=== PATIENT | male | born 1985 | race Caucasian/White ===

== ENCOUNTER 2017-07-25 18:07 | Emergency (ER) | payer BC, OTHER ==
[2017-07-25 18:21] VITALS: BP 133/91
--- NOTE | 2017-07-25 18:28 | EDM.PDOC ---
ED HPI GENERAL MEDICAL PROBLEM - General Chief Complaint: Skin Complaint Stated Complaint: SPIDER BITE Time Seen by Provider: 07/25/17 18:28 Source of Information: Reports: Patient - History of Present Illness INITIAL COMMENTS - FREE TEXT/NARRATIVE: Patient is here for evaluation of a skin lesion to his left buttock. States he noticed it today. It has been very painful and getting larger throat today. Patient does not have frequent skin lesions has not had frequent infections. He is not diabetic. Denies any chronic medical conditions. He is on no medications daily. - Related Data Allergies Allergy/AdvReac Type Severity Reaction Status Date / Time No Known Allergies Allergy Verified 07/25/17 18:21 Home Meds: Home Meds Cephalexin [Keflex] 500 mg PO BID #20 capsule 07/25/17 [Rx] Past Medical History - Past Health History Medical/Surgical History: Denies Medical/Surgical History HEENT History: Reports: Otitis Media - Past Surgical History GI Surgical History: Reports: Appendectomy Social & Family History - Family History Family Medical History: Noncontributory - Tobacco Use Smoking Status *Q: Current Every Day Smoker Years of Tobacco use: 15 Packs/Tins Daily: 0.5 - Caffeine Use Caffeine Use: Reports: Energy Drinks - Recreational Drug Use Recreational Drug Use: No ED ROS GENERAL - Review of Systems Review Of Systems: See Below Constitutional: Denies: Fever, Chills, Weakness, Fatigue Respiratory: Reports: No Symptoms Cardiovascular: Reports: No Symptoms Skin: Reports: Wound, Change in Color ED EXAM, SKIN/RASH Exam: See Below General Appearance: Alert, WD/WN, No Apparent Distress Neurological: Alert, Oriented Psychiatric: Normal Affect, Normal Mood Skin: Warm, Other (Raised, erythematous firm lesion to upper aspect left buttock. The main abscess measures 1.5cm diameter, total area of erythema is 6cm diameter. ) Associated features: Warmth, Tenderness, Swelling Course - Vital Signs Last Recorded V/S: Last Vital Signs Temp 98.0 F 07/25/17 18:17 Pulse 86 07/25/17 18:17 Resp 18 07/25/17 18:17 BP 133/91 H 07/25/17 18:17 Pulse Ox 98 07/25/17 18:17 - Re-Assessments/Exams Free Text/Narrative Re-Assessment/Exam: Localized area of cellulitis to left buttock. This is firm, no specific area to drain. Will treat with Keflex by mouth10 days. Recommend warm compresses to this. Patient will follow up in the clinic if not significantly improved over the next 5-7 days or certainly return to the emergency room needed. 07/25/17 18:43 Departure - Departure Time of Disposition: 18:44 Disposition: Home, Self-Care 01 Condition: Good Clinical Impression: Abscess - Discharge Information Prescriptions: Cephalexin [Keflex] 500 mg PO BID #20 capsule Referrals: Josie Ramos PA [Emergency Provider] - Forms: ED Department Discharge Additional Instructions: Keep area clean and dry. Apply hot compresses several times a day. Take antibiotic as prescribed and recommended probiotic with this as well. If lesions not mostly resolved over the next 5-7 days certainly follow-up in the clinic ([phone]) or return to the emergency room if any worsening.
== END 2017-07-25 19:20 | disposition home or self-care (01) ==
LOC: JD.ED 18:07
DX: L02.31 Cutaneous abscess of buttock (principal); L03.317 Cellulitis of buttock
CPT/HCPCS: 99283